=== PATIENT | female | born 1990 | race African-American/Black ===

== ENCOUNTER 2021-02-05 08:36 | Emergency (ER) | payer OTHER, SELFPAY ==
--- NOTE | 2021-02-05 08:45 | ED_ITS ---
HPI - General Adult General Chief complaint: Abdominal Pain Stated complaint: Severe abd cramping Time Seen by Provider: 02/05/21 08:45 History of Present Illness HPI narrative: 30-year-old currently trying to get presents with severe pelvic pain that she describes as severe cramping associated with vaginal bleeding that started early this morning. She is having no fevers, cough she does notice some chills with the waves of cramping pain. She notes mild bleeding with clots associated with the cramping as well. No flank pain, dysuria, headaches, palpitations, chest pain. She is unsure if she is currently Review of Systems Review of Systems Narrative: Remainder of complete review of systems is otherwise unremarkable except for that included in the HPI. Exam Narrative Exam Narrative: General: Healthy appearing, in significant distress during her rhythmic contractions. Able to give a complete and coherent history. Well-nourished well-developed HEENT: Moist mucous membranes, normal sclera with reactive pupils, Respiratory: Lungs are clear to auscultation, no wheezing no rales no rhonchi. Full and symmetrical air movement Cardiac: Regular rate and rhythm no murmurs no bruits Abdomen: Soft, nontender, good bowel tones, no flank pain Pelvis: No significant tenderness to palpation. Moderate vaginal bleeding Skin: Warm and dry, no rashes Neurologic: Grossly neurologically intact with no obvious asymmetries or abnormalities Extremities: No trauma, well perfused Psych: Cooperative, appropriate insight and affect Initial Vital Signs Initial Vital Signs: Vital Signs Temperature 97.7 F 02/05/21 08:56 Pulse Rate 74 02/05/21 08:56 Respiratory Rate 16 02/05/21 08:56 Blood Pressure 107/58 L 02/05/21 08:56 Pulse Oximetry 100 02/05/21 08:56 Course Orders Ordered: ED Orders 02/05/21 08:49 Test Urine Stat 02/05/21 08:50 Urinalysis and Microscopic Stat 02/05/21 09:04 Beta HCG, Quant [HCG Quantitative /Beta subunit] Stat Complete Blood Count AUTO DIFF Stat Comprehensive Metabolic Panel Stat 02/05/21 10:19 US pelvic complete Stat 02/05/21 10:50 CT abdomen pelvis w con Stat Hydromorphone HCl (Hydromorphone 0.5 Mg Inj) 0.5 mg IV Q15MIN PRN PRN Reason: Pain, Last Admin: 02/05/21 09:44 Dose: 0.5 mg Documented by: JAYMIE Sodium Chloride (Normal Saline 0.9%) 1,000 mls @ 150 mls/hr IV CONT AKIRA Last Infusion: 02/05/21 10:55 Dose: 0 mls/hr Documented by: Infusion: 02/05/21 09:44 Dose: 999 mls/hr Documented by: Admin: 02/05/21 09:43 Dose: 150 mls/hr Documented by: JAYMIE Discontinued Medications Sodium Chloride (Normal Saline 0.9%) 500 mls @ 1,000 mls/hr IV BOLUS ONE Stop: 02/05/21 10:04 Last Infusion: 02/05/21 10:55 Dose: 150 mls/hr Documented by: Admin: 02/05/21 10:54 Dose: 1,000 mls/hr Documented by: JACK Ketorolac Tromethamine (Ketorolac 30 Mg/Ml Vial) 15 mg IV NOW ONE Stop: 02/05/21 12:17 Ondansetron HCl (Ondansetron 4 Mg/2 Ml Inj) 4 mg IV NOW ONE Stop: 02/05/21 09:36 Last Admin: 02/05/21 09:44 Dose: 4 mg Documented by: JAYMIE Vital Signs Vital signs: Vital Signs - 8 hr 02/05/21 08:56 Temperature 97.7 F Pulse Rate 74 Respiratory Rate 16 Blood Pressure 107/58 L Pulse Oximetry 100 Medical Decision Making Lab Data Result diagrams: 02/05/21 09:04 02/05/21 09:04 Labs: Lab Results 02/05/21 02/05/21 02/05/21 Range/Units 08:49 08:50 09:04 WBC 8.4 (4.5-11.0) X10^3/uL RBC 4.28 (4.0-5.2) X10^6/uL Hgb 12.6 (12.0-16.0) g/dL Hct 38.2 (36-46) % MCV 89.3 (80-100) fL MCH 29.4 (26-34) PG MCHC 32.9 (30-36) % RDW 12.9 (11.6-14.8) % Plt Count 173 (150-400) X10^3/uL Neut % (Auto) 75.2 H (50-75) % Lymph % (Auto) 17.3 L (25-40) % [place] % (Auto) 6.4 (3-14) % Eos % (Auto) 0.6 L (2-4) % Baso % (Auto) 0.5 (0-2) % Neut # (Auto) 6300 (3657-5313) /uL Lymph # (Auto) 1500 (4907-6619) /uL [place] # (Auto) 500 (0-900) /uL Eos # (Auto) 0 (0-450) /uL Baso # (Auto) 0 (0-100) /uL Sodium (137-145) mmol/L Potassium (3.4-5.1) mmol/L Chloride (98-107) mmol/L Carbon Dioxide (22-32) mmol/L BUN (7-17) mg/dL Creatinine (0.52-1.04) mg/dL Estimated GFR (>60) mL/min BUN/Creatinine Ratio (6-22) Glucose (70-100) mg/dL Calcium (8.4-10.2) mg/dL Total Bilirubin (0.2-1.3) mg/dL AST (14-36) IU/L ALT (<35) IU/L Alkaline Phosphatase (38-126) U/L Total Protein (6.3-8.2) g/dL Albumin (3.5-5.0) g/dL Globulin (1.7-4.1) g/dL Albumin/Globulin Ratio (1.0-2.8) HCG, Quant mIU/mL Urine Color Red Urine Appearance Sl cloudy Urine pH 7.0 (4.5-8.0) Ur Specific [place] 1.020 (1.000-1.035) Urine Protein 2+ H (Negative) Urine Glucose (UA) Negative (Negative) g/dL Urine Ketones Negative (NEGATIVE) Urine Occult Blood 3+ H (Negative) Urine Nitrate Negative (Negative) Urine Bilirubin Negative (NEGATIVE) Urine Urobilinogen 0.2 (0.2) E.U./dL Ur Leukocyte Esterase Negative (NEGATIVE) Urine RBC >100/hpf H (0-5/HPF) Urine WBC 1-5/hpf (0-5/HPF) Ur Squamous Epith Cells 1-5 /hpf (0-5/HPF) Urine Bacteria None seen (None) Ur Culture Indicated? Cult not indicated Urine Test Negative (Negative) 02/05/21 Range/Units 09:04 WBC (4.5-11.0) X10^3/uL RBC (4.0-5.2) X10^6/uL Hgb (12.0-16.0) g/dL Hct (36-46) % MCV (80-100) fL MCH (26-34) PG MCHC (30-36) % RDW (11.6-14.8) % Plt Count (150-400) X10^3/uL Neut % (Auto) (50-75) % Lymph % (Auto) (25-40) % [place] % (Auto) (3-14) % Eos % (Auto) (2-4) % Baso % (Auto) (0-2) % Neut # (Auto) (3589-4400) /uL Lymph # (Auto) (4714-1389) /uL [place] # (Auto) (0-900) /uL Eos # (Auto) (0-450) /uL Baso # (Auto) (0-100) /uL Sodium 140 (137-145) mmol/L Potassium 4.0 (3.4-5.1) mmol/L Chloride 108 H (98-107) mmol/L Carbon Dioxide 23 (22-32) mmol/L BUN 16 (7-17) mg/dL Creatinine 0.61 (0.52-1.04) mg/dL Estimated GFR > 60.0 (>60) mL/min BUN/Creatinine Ratio 26.2 H (6-22) Glucose 112 H (70-100) mg/dL Calcium 9.6 (8.4-10.2) mg/dL Total Bilirubin 0.3 (0.2-1.3) mg/dL AST 24 (14-36) IU/L ALT 20 (<35) IU/L Alkaline Phosphatase 33 L (38-126) U/L Total Protein 7.6 (6.3-8.2) g/dL Albumin 4.4 (3.5-5.0) g/dL Globulin 3.2 (1.7-4.1) g/dL Albumin/Globulin Ratio 1.4 (1.0-2.8) HCG, Quant < 2.4 mIU/mL Urine Color Urine Appearance Urine pH (4.5-8.0) Ur Specific [place] (1.000-1.035) Urine Protein (Negative) Urine Glucose (UA) (Negative) g/dL Urine Ketones (NEGATIVE) Urine Occult Blood (Negative) Urine Nitrate (Negative) Urine Bilirubin (NEGATIVE) Urine Urobilinogen (0.2) E.U./dL Ur Leukocyte Esterase (NEGATIVE) Urine RBC (0-5/HPF) Urine WBC (0-5/HPF) Ur Squamous Epith Cells (0-5/HPF) Urine Bacteria (None) Ur Culture Indicated? Urine Test (Negative) Imaging Data Ultrasound pelvic and RLQ : My Impression: Per remanufacturing technician: Good blood flow to both ovaries, no significant uterine abnormalities. She was unable to visualize the appendix. CT scan - abdomen/pelvis: Radiologist's Impression: FINDINGS:? Image quality:? Excellent.? ? Lung bases:? Unremarkable.? ? Heart:? No significant findings. ? ? ABDOMEN: Liver:? Unremarkable.? ? Gallbladder:? Unremarkable.? ? Biliary ducts:? Unremarkable.? ? Pancreas:? Unremarkable.? ? Spleen:? Unremarkable.? ? Adrenal Glands:? Unremarkable.? ? Kidneys and Ureters:? Unremarkable.? ? ? Stomach and Bowel:? In this patient with this given history, scrutiny is given to the appendix.? The appendix is well seen and is normal.? No focal right lower quadrant inflammatory changes are seen.? Stomach, small bowel loops, and colon are unremarkable.? Peritoneum:? No abnormal intraperitoneal fluid.? No free air.? ? Ventral Wall: ? No hernia.? Abdominal Nodes:? No retroperitoneal or mesenteric adenopathy by size criteria.? Vessels:? Aorta and inferior vena cava are normal in size.? ? PELVIS: Pelvic Organs:? Unremarkable.? ? Bladder:? Unremarkable.? ? Pelvic Nodes: No enlarged lymph nodes.? Miscellaneous: No inguinal hernias are seen. ? ? ? Bones:? Unremarkable.? IMPRESSION:? ? Normal appendix. ? No imaging explanation is found for this patient's presenting symptoms.? ? ? Dictated by: Shorty Cary M.D. on 02/05/2021 at 10:28 ? ? MDM Narrative Medical decision making narrative: 30-year-old woman presents with severe right lower quadrant/pelvic cramping and recurrent rhythmic pattern associated with acute onset vaginal bleeding. She is not so no evidence for ectopic . Ultrasound shows no ovarian torsion or uterine mass. CT scan does not suggest colitis, kidney stone, hydro nephrosis, appendicitis, bowel obstruction or other life-threatening etiology. Patient is feeling better after fluids and pain medication. Repeat belly exam is entirely benign. Vital signs are reassuring. At this point I do not have a full explanation for her pain but I am not finding a reason for hospital admission for surgical intervention. All of this is reviewed with both patient and her questions are answered. She is safe for home discharge Discharge Plan Departure Patient Disposition: Home Clinical Impression: Right lower quadrant abdominal pain, Pelvic cramping Instructions: DI for Abdominal Pain-Adult Activity Restrictions/Additional Instructions: Thank you for coming in today With your workup we found that you are not so that this is not an ectopic concern, your ultrasound showed normal blood flow to both ovaries so no concern for ovarian torsion. There were no significant abnormalities appreciated with your uterus. CT scan did not show any signifi cant findings, specifically no appendicitis, kidney stones, kidney inflammation, colitis, intra-abdominal abscess or other concerning findings. Your blood work is reassuring and does not suggest significant infection. At this time I do not have a life-threatening diagnosis to explain the severe pe lvic cramping that your having this morning. I believe it is safe for you to go home and see what your body does over the next 12-24 hours. If pain continues, worsens if your developing fevers or new symptoms, please return to the ER and I am happy to re-evaluate I hope you feel better
[2021-02-05 08:56] VITALS: BP 107/58; PULSE 74; RESP 16; TEMP 36.5; O2SAT 100; BMI 25.0
[2021-02-05 09:10] LABS: Appearance Urine UA SL CLOUDY; Bilirubin Urine UA NEGATIVE (NEGATIVE); Color Urine UA RED; Glucose Urine UA NEGATIVE (Negative); Ketones Urine UA NEGATIVE (NEGATIVE); Leukocyte Esterase Urine UA NEGATIVE (NEGATIVE); Nitrite Urine UA NEGATIVE (Negative); Occult Blood Urine UA 3+ (Negative); Protein Urine UA 2+ (Negative); Urobilinogen Urine UA 0.2 E.U./dL (0.2)
[2021-02-05 09:28] LABS: Add Manual Diff / Slide Review NO; Basophils Absolute Auto 0 /uL (0-100); Basophils Percent Auto 0.5 % (0-2); Eosinophils Absolute Auto 0 /uL (0-450); Eosinophils Percent Auto 0.6 % (2-4); Hematocrit 38.2 % (36-46); Hemoglobin 12.6 g/dL (12.0-16.0); Lymphocytes Absolute Auto 1500 /uL (1100-4500); Lymphocytes Percent Auto 17.3 % (25-40); Mean Corpuscular HGB Conc 32.9 % (30-36); Mean Corpuscular Hemoglobin 29.4 PG (26-34); Mean Corpuscular Volume 89.3 fL (80-100); Monocytes Absolute Auto 500 /uL (0-900); Monocytes Percent Auto 6.4 % (3-14); Neutrophils Absolute Auto 6300 /uL (1500-7000); Neutrophils Percent Auto 75.2 % (50-75); Platelet Count 173 X10^3/uL (150-400); Red Blood Cell Count 4.28 X10^6/uL (4.0-5.2); Red Cell Distribution Width 12.9 % (11.6-14.8); White Blood Cell Count 8.4 X10^3/uL (4.5-11.0)
[2021-02-05 09:37] LABS: Pregnancy Test Urine Negative (Negative)
[2021-02-05] MEDS: SODIUM CHLORIDE 0.9% 1,000 ML 150 ML IV (09:43)
[2021-02-05] MEDS: HYDROMORPHONE 0.5 MG INJ IV (09:44)
[2021-02-05] MEDS: ONDANSETRON 4 MG/2 ML INJ IV (09:44)
[2021-02-05 10:14] LABS: Bacteria Urine None Seen; Culture Indicated Urine Cult Not Indicated; RBC Urine >100/HPF (0-5/HPF); Squamous Epithelial Cell Urine 1-5 /HPF (0-5/HPF); WBC Urine 1-5/HPF (0-5/HPF)
--- NOTE | 2021-02-05 10:19 | DI.US.S_ITS ---
PROCEDURE: US PELVIC COMPLETE INDICATIONS: RLQ PAIN; APPENDICITIS VS TORSION TECHNIQUE: Real-time scanning was performed of the pelvic organs, with image documentation. Additional endovaginal scanning was necessary due to incomplete visualization of the adnexal and endometrial structures by transabdominal scanning. COMPARISON: None. FINDINGS: Uterus: Uterus is anteverted and minimally prominent in size at 10.6 x 5.4 x 7.5 cm. The myometrium is homogeneous. The endometrium measures 8 mm combined thickness. Ovaries: The right ovary measures 2.9 x 1.4 x 2.1 cm. The left ovary measures 3.1 x 2 x 2.5 cm. The ovaries have a normal sonographic appearance. No adnexal masses are seen. Normal appearing arterial waveforms are confirmed to each ovary. Other: No pathologic free abdominal or pelvic fluid. No appendix (either normal or abnormal) is identified on this study. IMPRESSION: Normal right ovary. Negative for torsion. No appendix (either normal or abnormal) is identified on this study. We strive to produce accurate, complete, and clear reports of imaging services. To assist us in improving patient care, this report was composed using standard report templates and voice recognition software. Therefore, it may contain abnormal punctuation, insertions and/or omissions. Occasional wrong-word or sound-alike substitutions may occur. Though we review the report and make efforts to correct it, we do recommend that the report be read carefully in proper context to recognize any text inaccuracies. Dictated by: Shorty Cary M.D. on 02/05/2021 at 9:58 Approved by: Shorty Cary M.D. on 02/05/2021 at 9:59
[2021-02-05 10:37] LABS: Alanine Aminotransferase 20 IU/L (<35); Albumin 4.4 g/dL (3.5-5.0); Albumin Globulin Ratio 1.4 (1.0-2.8); Alkaline Phosphatase 33 U/L (38-126); Aspartate Aminotransferase 24 IU/L (14-36); BUN Creatinine Ratio 26.2 (6-22); Bilirubin Total 0.3 mg/dL (0.2-1.3); Blood Urea Nitrogen 16 mg/dL (7-17); Calcium 9.6 mg/dL (8.4-10.2); Carbon Dioxide 23 mmol/L (22-32); Chloride 108 mmol/L (98-107); Estimated Glomerular Filt Rate > 60.0 mL/min (>60); Globulin 3.2 g/dL (1.7-4.1); Glucose 112 mg/dL (70-100); HEMOLYSIS < 15 (0-50); Sodium 140 mmol/L (137-145); Total Protein 7.6 g/dL (6.3-8.2)
--- NOTE | 2021-02-05 10:50 | DI.CT.S_ITS ---
PROCEDURE: CT ABDOMEN PELVIS W CON INDICATIONS: acute onset RLQ pain with no appendix visualized on US. TECHNIQUE: After the administration of IV contrast, axial sections were acquired from the lung bases to the pubic symphysis. Coronal and sagittal reformats were performed. For radiation dose reduction, the following was used: automated exposure control, adjustment of mA and/or kV according to patient size. COMPARISON: [facility], US, US PELVIC COMPLETE, 02/05/2021, 10:31. FINDINGS: Image quality: Excellent. Lung bases: Unremarkable. Heart: No significant findings. ABDOMEN: Liver: Unremarkable. Gallbladder: Unremarkable. Biliary ducts: Unremarkable. Pancreas: Unremarkable. Spleen: Unremarkable. Adrenal Glands: Unremarkable. Kidneys and Ureters: Unremarkable. Stomach and Bowel: In this patient with this given history, scrutiny is given to the appendix. The appendix is well seen and is normal. No focal right lower quadrant inflammatory changes are seen. Stomach, small bowel loops, and colon are unremarkable. Peritoneum: No abnormal intraperitoneal fluid. No free air. Ventral Wall: No hernia. Abdominal Nodes: No retroperitoneal or mesenteric adenopathy by size criteria. Vessels: Aorta and inferior vena cava are normal in size. PELVIS: Pelvic Organs: Unremarkable. Bladder: Unremarkable. Pelvic Nodes: No enlarged lymph nodes. Miscellaneous: No inguinal hernias are seen. Bones: Unremarkable. IMPRESSION: Normal appendix. No imaging explanation is found for this patient's presenting symptoms. Dictated by: Shorty Cary M.D. on 02/05/2021 at 10:28 Approved by: Shorty Cary M.D. on 02/05/2021 at 10:31
[2021-02-05 10:54] LABS: HCG Quantitative /Beta subunit < 2.4 mIU/mL
[2021-02-05] MEDS: SODIUM CHLORIDE 0.9% 500 ML 1000 ML IV (10:54)
[2021-02-05] MEDS: KETOROLAC 30 MG/ML VIAL 15 MG IV (12:28)
[2021-02-05 12:34] VITALS: BP 98/53; PULSE 74; RESP 16; O2SAT 97
== END 2021-02-05 12:34 | disposition home or self-care (01) ==
PROVIDERS: Emergency Provider Emergency Medicine
DX: R10.31 Right lower quadrant pain (principal); N93.9 Abnormal uterine and vaginal bleeding, unspecified
CPT/HCPCS: 36415; 74177; 76830; 76856; 80053; 81001; 81025; 84702; 85025; 96361; 96374; 96375; 99284; J1170; J1885; J2405; Q9967

== ENCOUNTER 2021-03-24 15:05 | Emergency (ER) | payer OTHER, SELFPAY ==
[2021-03-24 15:34] VITALS: BP 97/52; PULSE 65; RESP 17; TEMP 36.9; O2SAT 100; BMI 23.9
--- NOTE | 2021-03-24 15:38 | DI.RAD.S_ITS ---
PROCEDURE: XR KNEE RT 1TO2V INDICATIONS: injury TECHNIQUE: 2 views of the knee were acquired. COMPARISON: None. FINDINGS: Bones: No acute fractures or dislocations. No suspicious bony lesions. No significant arthritic changes. Soft tissues: No joint effusion. No suspicious soft tissue calcifications. IMPRESSION: No acute osseous abnormality. If clinical suspicion and/or symptoms persist, additional imaging with repeat plain films, or advanced imaging (e.g. CT, MRI) may be helpful for further assessment. Dictated by: Rehan Carmona M.D. on 03/24/2021 at 16:21 Approved by: Rehan Carmona M.D. on 03/24/2021 at 16:21
--- NOTE | 2021-03-24 20:22 | ED_ITS ---
HPI - Extremity Injury (Lower) General Chief Complaint: Extremity Injury, Lower Stated Complaint: POPPED KNEE, PAIN Time Seen by Provider: 03/24/21 20:22 Source: patient and family Mode of arrival: Wheelchair History of Present Illness HPI Narrative: Otherwise healthy 31-year-old woman who is she is presents with right knee pain. She describes kneeling for an extended period of time and when she went to stand up found that her knee was locked in a flexed 45? position. Within a bit of time she was able to straighten her knee felt a significant ?pop? and then worsening pain in the knee. She is unable to bear weight because of the pain and is noticing increasing effusion as well. She notes that she was diagnosed with the meniscal tear in high school when she was playing basketball but did not needing surgical intervention at that time. Her knee has not bothered her since. Related Data Home Medications Medication Instructions Recorded Confirmed No Known Home Medications 03/24/21 03/24/21 Allergies Allergy/AdvReac Type Severity Reaction Status Date / Time No Known Drug Allergies Allergy Verified 03/24/21 15:38 Review of Systems Review of Systems Narrative: Remainder of complete review of systems is otherwise unremarkable except for that included in the HPI. Patient History Social History Smoking Status: Never smoker Smoking Status: Never smoker alcohol intake frequency: other Substance Use Type: does not use Exam Initial Vital Signs Initial Vital Signs: Vital Signs Temperature 98.4 F 03/24/21 15:34 Pulse Rate 65 03/24/21 15:34 Respiratory Rate 17 03/24/21 15:34 Blood Pressure 97/52 L 03/24/21 15:34 Pulse Oximetry 100 03/24/21 15:34 General: Alert appropriate in no acute distress Respiratory: Able to speak in full sentences, no obvious respiratory distress Skin: No obvious rashes, warm and dry Neurologic: Grossly intact no obvious asymmetries or abnormalities Psych: appropriate insight and affect, cooperative Extremity: Right knee with mild effusion no ecchymosis or abrasions. Difficult flexing due to pain. No swelling to the calf. Procedures Orthopedic Splinting/Casting Right knee: Time of procedure: 21:00 Side: right Course Orders Ordered: Discontinued Medications Acetaminophen (Acetaminophen 325 Mg Tablet) 975 mg PO NOW ONE Stop: 03/24/21 20:54 Last Admin: 03/24/21 20:55 Dose: 975 mg Documented by: VASILIY Oxycodone/Acetaminophen (Oxycodone/Acetaminophen 5/325 Tablet) 1 tab PO NOW ONE Stop: 03/24/21 21:00 Last Admin: 03/24/21 21:04 Dose: 1 tab Documented by: VASILIY Oxycodone/Acetaminophen (Oxycodone/Apap 5/325 Prepack) 1 bottle MISC SEEINSTR ONE Stop: 03/24/21 21:00 Last Admin: 03/24/21 21:04 Dose: 1 bottle Documented by: VASILIY Vital Signs Vital signs: Vital Signs - 8 hr 03/24/21 15:34 Temperature 98.4 F Pulse Rate 65 Respiratory Rate 17 Blood Pressure 97/52 L Pulse Oximetry 100 MDM - Extremity Injury (Lower) Lab Data Labs: Point of Care Testing Test Results Positive Imaging Data XR knee: Radiologist's Impression: FINDINGS:? ? Bones:? No acute fractures or dislocations.? No suspicious bony lesions.? No significant arthritic changes. ? Soft tissues:? No joint effusion.? No suspicious soft tissue calcifications.? ? ? IMPRESSION:? No acute osseous abnormality.? If clinical suspicion and/or symptoms persist, additional imaging with repeat plain films, or advanced imaging (e.g. CT, MRI) may be helpful for further assessment. ? ? Dictated by: Rehan Carmona M.D. on 03/24/2021 at 16:21? ?? [facility] Narrative Medical decision making narrative: 31-year-old woman with what sounds like a meniscal tear and a flap and that has now straightened back out but having some pain and effusion. She will be placed in a knee immobilizer given crutches and asked follow-up with her primary care physician and anticipation of likely needing MRI and orthopedic follow-up. Discharge Plan Departure Patient Disposition: Home Clinical Impression: Meniscal injury, Incidental Instructions: DI for Meniscal Tear, DI for -- Discomforts and Remedies Activity Restrictions/Additional Instructions: You for coming in today and CONGRATULATUIONS on the + test!! Your description sounds very much like a small meniscal tear with a flap the got caught and then flipped back to normal position. This can be quite painful and caused quite a bit of swelling. Please use the knee immobilizer until you feel the knee is completely stable. Use crutches as needed. Tylenol is safe to use in early . For the 1st couple of days for severe pain you can take 1 Percocet and 1 Tylenol. You will need follow-up with your primary care physician and likely will need an MRI of the knee and orthopedic follow-up as well. Prescriptions: No Action No Known Home Medications 0RF
[2021-03-24] MEDS: ACETAMINOPHEN 325 MG TABLET 975 MG PO (20:55)
[2021-03-24] MEDS: OXYCODONE/ACETAMINOPHEN 5/325 TABLET 1 TAB PO (21:04)
[2021-03-24] MEDS: OXYCODONE/APAP 5/325 PREPACK 1 BOTTLE MISC (21:04)
[2021-03-24 21:18] VITALS: BP 93/65; PULSE 74; RESP 18; O2SAT 99
== END 2021-03-24 21:19 | disposition home or self-care (01) ==
PROVIDERS: Emergency Provider Emergency Medicine
DX: S83.8X1A Sprain of other specified parts of right knee, initial encounter (principal); X50.1XXA Overexertion from prolonged static or awkward postures, initial encounter; Z33.1 Pregnant state, incidental
CPT/HCPCS: 73560; 81025; 99283

== ENCOUNTER → 2021-03-31 15:37 | Outpatient (CLI) | payer OTHER, SELFPAY ==
--- NOTE | 2021-03-31 | DI.US.S_ITS ---
PROCEDURE: US PERIPH VENOUS LOW EXTREM RT INDICATIONS: RIGHT LEG PAIN AND SWELLING TECHNIQUE: Real-time imaging, as well as color and pulse Doppler interrogation, were performed of the lower extremity deep veins from the inguinal ligament to the popliteal fossa. COMPARISON: None. FINDINGS: The common femoral, femoral and popliteal veins are normally compressible, and free of intraluminal thrombus. Color and pulse Doppler demonstrate normal phasic intraluminal flow. There is normal augmentation response to distal compression maneuver. There is occlusion of the right peroneal vein approximately 4.5 cm from the popliteal vein. IMPRESSION: Occlusive thrombosis is noted in the peroneal vein. Dictated by: Daisy Hernandes M.D. on 03/31/2021 at 16:55 Approved by: Daisy Hernandes M.D. on 03/31/2021 at 16:55
== END ==
PROVIDERS: Referring Provider Family Medicine; Visit Provider Family Medicine
DX: I82.451 Acute embolism and thrombosis of right peroneal vein (principal)
CPT/HCPCS: 93971

== ENCOUNTER → 2021-04-18 11:04 | Outpatient (CLI) | payer OTHER, SELFPAY ==
[2021-04-18 11:42] LABS: Add Manual Diff / Slide Review NO; Basophils Absolute Auto 0 /uL (0-100); Basophils Percent Auto 0.6 % (0-2); Eosinophils Absolute Auto 100 /uL (0-450); Eosinophils Percent Auto 1.4 % (2-4); Hematocrit 40.7 % (36-46); Hemoglobin 13.5 g/dL (12.0-16.0); Lymphocytes Absolute Auto 1700 /uL (1100-4500); Lymphocytes Percent Auto 33.4 % (25-40); Mean Corpuscular HGB Conc 33.1 % (30-36); Mean Corpuscular Hemoglobin 29.6 PG (26-34); Mean Corpuscular Volume 89.5 fL (80-100); Monocytes Absolute Auto 400 /uL (0-900); Monocytes Percent Auto 7.5 % (3-14); Neutrophils Absolute Auto 3000 /uL (1500-7000); Neutrophils Percent Auto 57.1 % (50-75); Platelet Count 205 X10^3/uL (150-400); Red Blood Cell Count 4.55 X10^6/uL (4.0-5.2); Red Cell Distribution Width 12.9 % (11.6-14.8); White Blood Cell Count 5.2 X10^3/uL (4.5-11.0)
[2021-04-18 12:08] LABS: Appearance Urine UA CLEAR; Bilirubin Urine UA NEGATIVE (NEGATIVE); Color Urine UA YELLOW; Glucose Urine UA NEGATIVE (Negative); Ketones Urine UA NEGATIVE (NEGATIVE); Leukocyte Esterase Urine UA TRACE (NEGATIVE); Nitrite Urine UA NEGATIVE (Negative); Occult Blood Urine UA TRACE-INTACT (Negative); Protein Urine UA NEGATIVE (Negative); Specific Gravity Urine UA 1.015 (1.000-1.035); Urobilinogen Urine UA 0.2 E.U./dL (0.2)
[2021-04-18 12:09] LABS: pH Urine UA 6.5 (4.5-8.0)
[2021-04-18 12:22] LABS: Bacteria Urine None Seen; Culture Indicated Urine Specimen Cultured; RBC Urine None Seen (0-5/HPF); Squamous Epithelial Cell Urine 0-1 /HPF (0-5/HPF); WBC Urine 1-5/HPF (0-5/HPF)
[2021-04-18 15:04] LABS: Urine N gonorrhoeae NOT DETECTED
[2021-04-18 15:50] LABS: Urine Chlamydia NOT DETECTED
[2021-04-18 20:41] LABS: Hepatitis B Surface Antigen NEGATIVE s/c (NEGATIVE); Rubella Antibody IgG 24.4 IU/mL (>15)
[2021-04-18 20:54] LABS: HIV 1 & 2 Ab/Ag 4th Gen Combo NEGATIVE (NEGATIVE); Hep C Virus Ab w/Reflex Quant NEGATIVE s/c (NEGATIVE)
[2021-04-19 04:48] LABS: RPR Screen Non Reactive (Non Reactive)
[2021-04-19 12:57] LABS: Varicella IgG Antibody 2017 index (Immune >165)
== END ==
PROVIDERS: Referring Provider Obstetrics & Gynecology; Visit Provider Obstetrics & Gynecology
DX: Z34.80 Encounter for supervision of other normal pregnancy, unspecified trimester (principal); Z3A.21 21 weeks gestation of pregnancy
CPT/HCPCS: 36415; 80055; 81003; 81015; 86787; 86803; 86850; 86900; 86901; 87086; 87389; 87491; 87591

== ENCOUNTER 2021-04-25 19:57 | Emergency (ER) | payer OTHER, SELFPAY ==
[2021-04-25 20:00] VITALS: BP 109/64; PULSE 84; RESP 16; TEMP 36.9; O2SAT 100; BMI 26.7
--- NOTE | 2021-04-25 20:13 | ED.FEMALEGU ---
HPI - Female Genitourinary General Chief complaint: Vaginal Bleeding Stated complaint: 8 WKS BLEEDING ON BLOOD THINNERS Time Seen by Provider: 04/25/21 20:11 Source: patient Mode of arrival: Wheelchair History of Present Illness HPI Narrative: 31F nonsmoker is a at 8 weeks who presents with vaginal spotting. She denies any pain and is not dizzy nor weak or lightheaded. She was diagnosed with a right lower extremity DVT in the end of March and started on Lovenox. A few weeks ago she started having some spotting and was being followed closely by local OB. She admits to a very small amount of brownish discharge which on occasion is bright red. She saw her primary OB earlier today and had a bedside ultrasound that showed a questionable decrease in heart tones. She was told that if the bleeding had become bright red again she should present to the emergency department. She states that she had an episode just prior to arrival in the absence of any pain. She has very minimal bleeding currently. She denies any fever or chills. Related Data Home Medications Medication Instructions Recorded Confirmed azelaic acid 15 % topical gel 1 applic TOPICAL BID 04/04/21 04/25/21 (Finacea) prenat.vits,trenton,nri-klew-lticv 1 tab PO DAILY 04/04/21 04/25/21 enoxaparin 80 mg/0.8 mL 80 mg SUBCUT DAILY 04/13/21 04/25/21 subcutaneous syringe (Lovenox) Allergies Allergy/AdvReac Type Severity Reaction Status Date / Time No Known Drug Allergies Allergy Verified 04/25/21 15:29 Review of Systems Review of Systems Narrative: GENERAL: Denies chills, fatigue, malaise, fever, sweats. HEENT: Denies sinus pain, ear pain, sore throat, difficulty swallowing, dizziness. RESPIRATORY: Denies dyspnea, cough, wheezing, hemoptysis, sputum. CARDIOVASCULAR: Denies chest pain, palpitations, orthopnea, edema, GASTROINTESTINAL: Denies nausea, vomiting, abdominal pain, diarrhea, constipation, melena. : see HPI MUSCULOSKELETAL: denies weakness, joint pain, or bony pain SKIN: Denies rash, skin lesions, or other NEUROLOGIC: Denies weakness, headache, numbness, change in speech, confusion, seizures, incoordination. PSYCHIATRIC: No concerning psychosocial issues. 12 point review of systems is negative except for those stated above Patient History Medical History (Updated 04/25/21 @ 23:40 by Bala Ernandez DO) Acne (~2001) Knee fracture, right (~2021) UTI (urinary tract infection) Surgical History (Updated 04/13/21 @ 15:40 by Sandi Kurtz RN) H/O wisdom tooth extraction Family History (Updated 04/15/21 @ 21:03 by Robyn Jeff) Mother Hypothyroid Father Hypertension Hyperlipidemia Grandfather Heart disease Diabetes mellitus Hyperlipidemia Hypertension Grandmother Hyperlipidemia Hypertension Grandfather Hypertension Stroke Grandmother Cancer alcohol intake frequency: other Last Alcoholic Drink: none Substance Use Type: does not use Exam Narrative Exam Narrative: GENERAL: [31] year old patient appears stated age. Well-developed patient, in mild distress. HEAD: Atraumatic. Normocephalic. EYES: Pupils equal round and reactive. Extraocular motions intact. No scleral icterus. No injection or drainage. ENT: Nose without bleeding, purulent drainage. Throat without erythema, tonsillar hypertrophy or exudate. Airway patent. NECK: Trachea midline. Non tender CARDIOVASCULAR: Regular rate and rhythm without murmurs, gallops, or rubs. RESPIRATORY: Clear to auscultation. Breath sounds equal bilaterally. No wheezes, rales, or rhonchi. GASTROINTESTINAL: Abdomen soft, non-tender, nondistended. EXTREMITIES: No edema or joint tenderness. BACK: Nontender without deformity or crepitance. No flank tenderness. NEURO: AOx3. SKIN: No rash or erythema of visible areas Initial Vital Signs Initial Vital Signs: Vital Signs Temperature 98.5 F 04/25/21 20:00 Pulse Rate 84 04/25/21 20:00 Respiratory Rate 16 04/25/21 20:00 Blood Pressure 109/64 04/25/21 20:00 Pulse Oximetry 100 04/25/21 20:00 Course Orders Ordered: ED Orders 04/25/21 20:30 BMP [Basic Metabolic Panel] Stat CBC Auto Diff [Complete Blood Count AUTO DIFF] Stat Prothrombin Time INR Stat Type and Screen Stat 04/25/21 20:58 US OB <= 14 weeks fetus Stat Vital Signs Vital signs: Vital Signs - 8 hr 04/25/21 20:00 Temperature 98.5 F Pulse Rate 84 Respiratory Rate 16 Blood Pressure 109/64 Pulse Oximetry 100 MDM - Female Genitourinary Lab Data Result diagrams: 04/25/21 20:30 04/25/21 20:30 Labs: Lab Results 04/25/21 04/25/21 04/25/21 Range/Units 20:30 20:30 20:30 WBC 6.8 (4.5-11.0) X10^3/uL RBC 4.39 (4.0-5.2) X10^6/uL Hgb 13.1 (12.0-16.0) g/dL Hct 39.3 (36-46) % MCV 89.5 (80-100) fL MCH 29.8 (26-34) PG MCHC 33.3 (30-36) % RDW 12.9 (11.6-14.8) % Plt Count 218 (150-400) X10^3/uL Neut % (Auto) 55.8 (50-75) % Lymph % (Auto) 34.5 (25-40) % [place] % (Auto) 7.1 (3-14) % Eos % (Auto) 1.8 L (2-4) % Baso % (Auto) 0.8 (0-2) % Neut # (Auto) 3800 (6203-2390) /uL Lymph # (Auto) 2400 (0286-2491) /uL [place] # (Auto) 500 (0-900) /uL Eos # (Auto) 100 (0-450) /uL Baso # (Auto) 100 (0-100) /uL PT 11.7 (10.1-12.7) SECONDS INR 1.1 (0.9-1.3) Sodium 139 (137-145) mmol/L Potassium 3.8 (3.4-5.1) mmol/L Chloride 104 (98-107) mmol/L Carbon Dioxide 26 (22-32) mmol/L BUN 13 (7-17) mg/dL Creatinine 0.54 (0.52-1.04) mg/dL Estimated GFR > 60.0 (>60) mL/min BUN/Creatinine Ratio 24.1 H (6-22) Glucose 101 H (70-100) mg/dL Calcium 10.3 H (8.4-10.2) mg/dL Blood Type Antibody Screen 04/25/21 Range/Units 20:30 WBC (4.5-11.0) X10^3/uL RBC (4.0-5.2) X10^6/uL Hgb (12.0-16.0) g/dL Hct (36-46) % MCV (80-100) fL MCH (26-34) PG MCHC (30-36) % RDW (11.6-14.8) % Plt Count (150-400) X10^3/uL Neut % (Auto) (50-75) % Lymph % (Auto) (25-40) % [place] % (Auto) (3-14) % Eos % (Auto) (2-4) % Baso % (Auto) (0-2) % Neut # (Auto) (5669-7098) /uL Lymph # (Auto) (0267-6153) /uL [place] # (Auto) (0-900) /uL Eos # (Auto) (0-450) /uL Baso # (Auto) (0-100) /uL PT (10.1-12.7) SECONDS INR (0.9-1.3) Sodium (137-145) mmol/L Potassium (3.4-5.1) mmol/L Chloride (98-107) mmol/L Carbon Dioxide (22-32) mmol/L BUN (7-17) mg/dL Creatinine (0.52-1.04) mg/dL Estimated GFR (>60) mL/min BUN/Creatinine Ratio (6-22) Glucose (70-100) mg/dL Calcium (8.4-10.2) mg/dL Blood Type A Positive Antibody Screen Negative Imaging Data US - OB: Radiologist's Impression: [address] [address] Ultrasound Report Signed Patient: Wanda Otero MR#: [id number] : 1990 Acct:[id number] Age/Sex: 31 / F Date of Service: 04/25/21 Loc: ED Accession Number: [id number] ?? Procedure: US OB <= 14 weeks fetus Ordering Provider: Bala Ernandez D.O. PROCEDURE:? US OB <= 14 WEEKS FETUS ? INDICATIONS:? 7 WEEKS ; ON LOVONOX; BLEEDING ? OUTSIDE/PRIOR DATING DATA:? Last menstrual period (LMP):? 03/02/2021.? LMP-based estimated date of delivery (PATRIZIA):? 12/07/2021.? First dating scan (date and location):? 04/25/2021.? Estimated date of delivery (PATRIZIA) from first dating scan:? 12/18/2021. ? TECHNIQUE:? Real-time scanning was performed of the fetus and maternal pelvic organs, with image documentation.? Endovaginal scanning was also performed to better visualize the fetus and maternal ovaries.? ? COMPARISON:? [facility], , OB <= 14 WEEKS FETUS, 04/18/2021, 10:38. ? FINDINGS:? ? Embryo:? There is an intrauterine with a gestational sac demonstrated.? There is a small pole with a crown-rump length of 0.5 cm corresponding to gestational age of 6 weeks 1 day.? This appears unchanged or decreased in size compared to the prior study from 04/18/2021.? The pole appears small in size compared to the gestational sac.? No heart motion identified.? There is a perigestational subchorionic hematoma measuring approximately 2.5 x 1.8 x 3.5 cm. ? Maternal organs:? The right ovary appears within normal size limits.? The left ovary was not well seen. ? ? IMPRESSION:? ? 1. Single intrauterine with a small pole relative to the size of the gestational sac.? pole demonstrates no definite interval growth compared to the prior study and no heart motion was identified.? The findings compatible with demise. ? 2. Perigestational subchorionic hematoma demonstrated.? ? We strive to produce accurate, complete, and clear reports of imaging services. To assist us in improving patient care, this report was composed using standard report templates and voice recognition software. Therefore, it may contain abnormal punctuation, insertions and/or omissions. Occasional wrong-word or sound-alike substitutions may occur. Though we review the report and make efforts to correct it, we do recommend that the report be read carefully in proper context to recognize any text inaccuracies. ? ? Dictated by: Andrae Aparicio M.D. on 04/25/2021 at 23:04 ? ? Approved by: Andrae Aparicio M.D. on 04/25/2021 at 23:17 ? MDM Narrative Medical decision making narrative: Patient with episodes of vaginal spotting presents for evaluation. She has minimal to no current bleeding or pain. Ultrasound would suggest demise. I encouraged her to follow closely with Follows has her recommendations may be slightly different than typical given her current use of Lovenox. She has been given extensive return precautions and she and understand indications to return. Discharge Plan Departure Patient Disposition: Home Clinical Impression: Incomplete Instructions: DI for Miscarriage Activity Restrictions/Additional Instructions: *You have been diagnosed with [incomplete miscarriage ] *What to do: *Please continue to take your regular medications as directed. [ ] New medication prescriptions sent to your pharmacy: [ ] [ ] New medication written as a paper prescription [ x] No new medications given *Please follow up with Dr. Sommer tomorrow morning. Please call at 830am and let the office know that you were seen in the Emergency Department and we would like you to be seen in follow up. *Return to Emergency Department if you should have any new, worsening or concerning symptoms, such as [fever greater than 101 F, shaking chills, worsening pain, persistent bleeding (saturating a pad per hour) or other bothersome symptoms Prescriptions: No Action prenat.vits,trenton,net-yqqw-wiewk Tablet 1 tab PO DAILY 0RF azelaic acid [Finacea] 15 % gel 1 applic topical BID 0RF enoxaparin [Lovenox] 80 mg/0.8 mL syringe 80 mg SUBCUT DAILY 0RF Referrals: Pallavi Sommer MD [Physician] -
[2021-04-25 20:43] LABS: Add Manual Diff / Slide Review NO; Basophils Absolute Auto 100 /uL (0-100); Basophils Percent Auto 0.8 % (0-2); Eosinophils Absolute Auto 100 /uL (0-450); Eosinophils Percent Auto 1.8 % (2-4); Hematocrit 39.3 % (36-46); Hemoglobin 13.1 g/dL (12.0-16.0); Lymphocytes Absolute Auto 2400 /uL (1100-4500); Lymphocytes Percent Auto 34.5 % (25-40); Mean Corpuscular HGB Conc 33.3 % (30-36); Mean Corpuscular Hemoglobin 29.8 PG (26-34); Mean Corpuscular Volume 89.5 fL (80-100); Monocytes Absolute Auto 500 /uL (0-900); Monocytes Percent Auto 7.1 % (3-14); Neutrophils Absolute Auto 3800 /uL (1500-7000); Neutrophils Percent Auto 55.8 % (50-75); Platelet Count 218 X10^3/uL (150-400); Red Blood Cell Count 4.39 X10^6/uL (4.0-5.2); Red Cell Distribution Width 12.9 % (11.6-14.8); White Blood Cell Count 6.8 X10^3/uL (4.5-11.0)
[2021-04-25 20:50] LABS: INR 1.1 (0.9-1.3); Prothrombin Time 11.7 SECONDS (10.1-12.7)
[2021-04-25 20:54] LABS: BUN Creatinine Ratio 24.1 (6-22); Blood Urea Nitrogen 13 mg/dL (7-17); Calcium 10.3 mg/dL (8.4-10.2); Carbon Dioxide 26 mmol/L (22-32); Chloride 104 mmol/L (98-107); Estimated Glomerular Filt Rate > 60.0 mL/min (>60); Glucose 101 mg/dL (70-100); HEMOLYSIS < 15 (0-50); Potassium 3.8 mmol/L (3.4-5.1); Sodium 139 mmol/L (137-145)
--- NOTE | 2021-04-25 20:58 | DI.US.S_ITS ---
PROCEDURE: US OB <= 14 WEEKS FETUS INDICATIONS: 7 WEEKS ; ON LOVONOX; BLEEDING OUTSIDE/PRIOR DATING DATA: Last menstrual period (LMP): 03/02/2021. LMP-based estimated date of delivery (PATRIZIA): 12/07/2021. First dating scan (date and location): 04/25/2021. Estimated date of delivery (PATRIZIA) from first dating scan: 12/18/2021. TECHNIQUE: Real-time scanning was performed of the fetus and maternal pelvic organs, with image documentation. Endovaginal scanning was also performed to better visualize the fetus and maternal ovaries. COMPARISON: [facility], US, OB <= 14 WEEKS FETUS, 04/18/2021, 10:38. FINDINGS: Embryo: There is an intrauterine with a gestational sac demonstrated. There is a small pole with a crown-rump length of 0.5 cm corresponding to gestational age of 6 weeks 1 day. This appears unchanged or decreased in size compared to the prior study from 04/18/2021. The pole appears small in size compared to the gestational sac. No heart motion identified. There is a perigestational subchorionic hematoma measuring approximately 2.5 x 1.8 x 3.5 cm. Maternal organs: The right ovary appears within normal size limits. The left ovary was not well seen. IMPRESSION: 1. Single intrauterine with a small pole relative to the size of the gestational sac. pole demonstrates no definite interval growth compared to the prior study and no heart motion was identified. The findings compatible with demise. 2. Perigestational subchorionic hematoma demonstrated. We strive to produce accurate, complete, and clear reports of imaging services. To assist us in improving patient care, this report was composed using standard report templates and voice recognition software. Therefore, it may contain abnormal punctuation, insertions and/or omissions. Occasional wrong-word or sound-alike substitutions may occur. Though we review the report and make efforts to correct it, we do recommend that the report be read carefully in proper context to recognize any text inaccuracies. Dictated by: Andrae Aparicio M.D. on 04/25/2021 at 23:04 Approved by: Andrae Aparicio M.D. on 04/25/2021 at 23:17
--- NOTE | 2021-04-25 21:26 | PC.NURSE ---
was spotting earlier called OB and was told to come in if it continued
--- NOTE | 2021-04-25 23:15 | PC.NURSE ---
updated on plan of care
== END 2021-04-26 | disposition home or self-care (01) ==
PROVIDERS: Emergency Provider Emergency Medicine
DX: O03.4 Incomplete spontaneous abortion without complication (principal)
CPT/HCPCS: 36415; 76801; 76817; 80048; 85025; 85610; 86850; 86900; 86901; 99283

== ENCOUNTER 2021-08-18 00:17 | Emergency (ER) | payer OTHER, SELFPAY ==
[2021-08-18 00:25] VITALS: BP 120/74; PULSE 77; RESP 16; TEMP 36.9; O2SAT 100; BMI 26.6
[2021-08-18 00:51] LABS: RBC Urine 0-1/HPF (0-5/HPF); Squamous Epithelial Cell Urine 1-5 /HPF (0-5/HPF); WBC Urine 1-5/HPF (0-5/HPF)
[2021-08-18 00:52] LABS: Bacteria Urine Many (>30)
[2021-08-18 00:53] LABS: Mucus Urine 2+ (Negative)
--- NOTE | 2021-08-18 01:01 | ED_ITS ---
HPI - Female Genitourinary General Chief complaint: Urogenital-Female Stated complaint: SPOTTING, WANTS A TEST Time Seen by Provider: 08/18/21 00:29 Source: patient Mode of arrival: Ambulatory Limitations: no limitations History of Present Illness HPI Narrative: This is a 31-year-old female who presents for concern for requesting test. Last menstrual period was July 22, she states she is usually 24-25 days. Patient states she had some spotting on Sunday, 3 days ago. Just when she wiped was not on her add or underwear. She has not had any additional since then she is at the point she should be starting her menses. She is several days late he is never had spotting before. She is normally quite regular. She was concerned about possible did home test which was negative but states that she was found quite early on hospital test once so presents for testing. She denies any abdominal, back or flank pain. No fevers or chills. No nausea or vomiting. No breast tenderness. She has not had any other symptoms so far. She is not any dysuria, urgency or frequency. She is never had hematuria in the past. No new vaginal discharge. Related Data Home Medications Medication Instructions Recorded Confirmed azelaic acid 15 % topical gel 1 applic topical BID 04/04/21 05/02/21 (Finacea) prenat.vits,trenton,[id number]-yxdl-[id number] 1 tab PO DAILY 04/04/21 05/02/21 enoxaparin 80 mg/0.8 mL 80 mg SUBCUT DAILY 04/13/21 05/02/21 subcutaneous syringe (Lovenox) Allergies Allergy/AdvReac Type Severity Reaction Status Date / Time No Known Drug Allergies Allergy Verified 08/18/21 00:31 Review of Systems Review of Systems ROS Unobtainable: All systems reviewed & are unremarkable except as noted in HPI and below Patient History Medical History Acne (~2001) Knee fracture, right (~2021) UTI (urinary tract infection) Surgical History H/O wisdom tooth extraction Family History Mother Hypothyroid Father Hypertension Hyperlipidemia Grandfather Heart disease Diabetes mellitus Hyperlipidemia Hypertension Grandmother Hyperlipidemia Hypertension Grandfather Hypertension Stroke Grandmother Cancer alcohol intake frequency: other Last Alcoholic Drink: none Substance Use Type: does not use Exam Narrative Exam Narrative: GENERAL: Alert and oriented x three, female in mild distress HEENT: Head normocephalic, atraumatic, EOMI, pupils reactive, face symmetric, moist mucous membranes NECK: Supple, full range of motion CARDIOVASCULAR: Regular rate and rhythm without murmurs, rubs or gallops. RESPIRATORY: Breath sounds equal bilaterally, no wheezes rales or rhonchi. ABDOMEN: Soft, nontender. Normoactive bowel sounds all 4 quadrants. No guarding or rebound, rigidity, no mass : No CVA tenderness EXTREMITIES: Normal range of motion, no clubbing or edema. Neurovascularly intact NEUROLOGICAL: Cranial nerves II through XII grossly intact. Moving all extremities SKIN: Warm, dry, no petechiae, no rashes or lesions. Initial Vital Signs Initial Vital Signs: Vital Signs Temperature 98.4 F 08/18/21 00:25 Pulse Rate 77 08/18/21 00:25 Respiratory Rate 16 08/18/21 00:25 Blood Pressure 120/74 08/18/21 00:25 Pulse Oximetry 100 08/18/21 00:25 Oxygen Delivery Method 08/18/21 00:25 Course Orders Ordered: ED Orders 08/18/21 00:30 Urine Culture Stat Urine Microscopic Stat 08/18/21 01:19 Urine Culture Stat Vital Signs Vital signs: Vital Signs - 8 hr 08/18/21 00:25 Temperature 98.4 F Pulse Rate 77 Respiratory Rate 16 Blood Pressure 120/74 Pulse Oximetry 100 Oxygen Delivery Method Room Air MDM - Female Genitourinary Lab Data Labs: Lab Results 08/18/21 Range/Units 00:30 Urine RBC 0-1/hpf (0-5/HPF) Urine WBC 1-5/hpf (0-5/HPF) Ur Squamous Epith Cells 1-5 /hpf (0-5/HPF) Urine Bacteria Many (>30) H (None) Urine Mucus 2+ H (Negative) Ur Culture Indicated? Culture not indicate Point of Care Testing Test Results Negative Urine Dip Bedside Urine Glucose Negative Bedside Urine Bilirubin - Negative Bedside Urine Ketone - Negative Urine Specific [place] 1.030 Bedside Urine Occult Blood ++ Bedside Urine pH 6.0 Bedside Urine Protein - Negative Bedside Urine Urobilinogen - Negative Bedside Urine Nitrite - Negative Bedside Urine Leukocytes +/- 15 Esterase MDM Narrative Medical decision making narrative: This is a 31-year-old female who had spotting 3 days ago, requests test which is negative. Urine does show some hematuria on dip with leukocytes but only shows 0-1, wbc's are 1-5, squamous epithelial 125 with many bacteria. Patient has not had any additional bleeding. Plan for urine culture evaluate for infection. Patient feels quite comfortable with this plan we also discussed rechecking a test in the next week at home she continues to be without her menses. Discharge Plan Departure Patient Disposition: Home Clinical Impression: Hematuria Activity Restrictions/Additional Instructions: You had a small amount of blood in your urine today. This can be either from the bladder or vaginally. A urine culture was sent takes about 48 hours to result if positive for infection in your urine you will be contacted to start antibiotics. You can also check these results in the patient portal. Your urine test today is negative if you have still not started her period in the next week I would repeat it at that time. Please return for fevers, new or worsening abdominal pain, persistent vomiting, passing out or other new or concerning symptoms. Prescriptions: No Action prenat.vits,trenton,whr-dypz-[id number] Tablet 1 tab PO DAILY azelaic acid [Finacea] 15 % gel 1 applic topical BID enoxaparin [Lovenox] 80 mg/0.8 mL syringe 80 mg SUBCUT DAILY Visit Report Forms: Patient Portal/API
== END 2021-08-18 01:19 | disposition home or self-care (01) ==
PROVIDERS: Emergency Provider Emergency Medicine
DX: R31.9 Hematuria, unspecified (principal)
CPT/HCPCS: 81003; 81015; 81025; 87086; 99282